=== PATIENT | male | born 1945 | race Caucasian/White ===

== ENCOUNTER 2018-04-21 19:47 | Emergency (ER) | payer OTHER ==
[~2018-04-21] VITALS: Ht 167.6 cm; Wt 86.0 kg
[2018-04-21] MEDS ORDERED: HYDROCODONE/ACETAMINOPHEN 5/325MG TABLET PO ONE (20:45)
[2018-04-22 01:17] VITALS: BP 171/77
== END 2018-04-22 01:19 | disposition home or self-care (01) ==
LOC: ER 22:24
DX: M54.2 Cervicalgia (principal); M25.511 Pain in right shoulder; M25.512 Pain in left shoulder; I10 Essential (primary) hypertension; Z95.1 Presence of aortocoronary bypass graft; Z93.1 Gastrostomy status; Z96.659 Presence of unspecified artificial knee joint; Z98.890 Other specified postprocedural states
CPT/HCPCS: 99283